=== PATIENT | male | born 1945 | race Caucasian/White ===

== ENCOUNTER → 2016-10-23 | Outpatient (CLI) | payer MEDICARE, OTHER | END | disposition home or self-care (01) | LOC: CFH 08:23 | PROVIDERS: ATTEND Surgery | DX: I71.4 Abdominal aortic aneurysm, without rupture (principal) | CPT/HCPCS: 93978 ==

== ENCOUNTER → 2016-11-05 | Outpatient (CLI) | payer MEDICARE, OTHER ==
[~2016-11-05] MED LIST: OMNIPAQUE 350 MG/ML, 100ML BOTTLE ONE
== END | disposition home or self-care (01) ==
LOC: CFH 11:01
PROVIDERS: ATTEND Surgery
DX: I71.4 Abdominal aortic aneurysm, without rupture (principal); I70.1 Atherosclerosis of renal artery; M51.37 Other intervertebral disc degeneration, lumbosacral region; M47.896 Other spondylosis, lumbar region
CPT/HCPCS: 74177; 82565; Q9967

== ENCOUNTER 2016-11-24 07:37 | Inpatient (IN) | payer MEDICARE, OTHER ==
[2016-11-21 09:07] LABS: HEMATOCRIT 47.1 % (39.2-51.8); HEMOGLOBIN 15.8 g/dL (13.7-18.0); WHITE BLOOD COUNT 4.8 x10^3/uL (3.4-10)
[2016-11-21 09:18] LABS: ASPARTATE AMINO TRANSFERASE 16 U/L (15-37); BLOOD UREA NITROGEN 19 mg/dL (7-18)
[~2016-11-24] VITALS: Ht 170.2 cm; Wt 70.6 kg
[~2016-11-24 07:37] MED LIST changes: +ASCO10004 PO; +ASPI-496 PO; +BENA40TA2 PO; +CHOL200074 PO; +CYAN50003 PO; +EZET10TA18 PO; +FLAX1000 PO; +GLUC1500 PO; +HYDR25TA6 PO; +LEVO50TA5 PO; -OMNIPAQUE 350 MG/ML, 100ML BOTTLE ONE; +POTA10TA12 PO; +RED600TA PO
[2016-11-24] MEDS ORDERED: LACTATED RINGERS 1,000 ML IV SCH (12:21)
[2016-11-24 12:46] VITALS: BP 126/79
[2016-11-24] MEDS ORDERED: FENTANYL PF 250 MCG/5ML ONE (13:45)
[2016-11-24] MEDS ORDERED: CEFAZOLIN 1,000 MG ONE (14:09)
[2016-11-24] MEDS ORDERED: PROPOFOL 10 MG/ML, 20ML ONE (14:09)
[2016-11-24] MEDS ORDERED: PROTAMINE SULFATE 10 MG/ML, 5ML ONE (14:09)
[2016-11-24] MEDS ORDERED: GLYCOPYRROLATE 0.4 MG/2 ML, 2ML ONE (14:09)
[2016-11-24] MEDS ORDERED: NEOSTIGMINE 1 MG/ML, 10ML ONE (14:09)
[2016-11-24] MEDS ORDERED: DEXAMETHASONE 4 MG/ML, 1ML ONE (14:09)
[2016-11-24] MEDS ORDERED: EPHEDRINE 50 MG/ML, 1ML ONE (14:09)
[2016-11-24] MEDS ORDERED: ONDANSETRON 2MG/ML, 2ML ONE (14:09)
[2016-11-24] MEDS ORDERED: ROCURONIUM 10MG/ML,5ML ONE (14:09)
[2016-11-24] MEDS ORDERED: FENTANYL PF 100 MCG/2ML IV PRN (14:30)
[2016-11-24] MEDS ORDERED: hydrALAzine 20 MG/ML, 1ML IV PRN (14:30)
[2016-11-24] MEDS ORDERED: ONDANSETRON 2MG/ML, 2ML IVPush PRN (14:30)
[2016-11-24] MEDS ORDERED: ACETAMINOPHEN 325 MG TABLET PO PRN ×2 (14:30→19:00)
[2016-11-24] MEDS ORDERED: METOPROLOL 1 MG/ML, 5ML IV PRN (14:30)
[2016-11-24] MEDS ORDERED: LABETALOL 5MG/ML, 20ML IV PRN (14:30)
[2016-11-24] MEDS ORDERED: PROMETHAZINE 25 MG/ML, 1ML IV PRN (14:30)
[2016-11-24] MEDS ORDERED: EPHEDRINE 50 MG/ML, 1ML IVPush PRN (14:30)
[2016-11-24] MEDS ORDERED: OXYcodone 5 MG/5 ML ORAL.SOL UDC PO PRN (14:30)
[2016-11-24] MEDS ORDERED: ALBUTEROL SULFATE 2.5 MG/3 ML NPPB PRN (14:30)
[2016-11-24] MEDS ORDERED: HYDROmorphone 1 MG/ML, 1ML IV PRN (14:30)
[2016-11-24] MEDS ORDERED: BUPIVACAINE/PF-EPI 0.25% 1:200K IM ONE (14:45)
[2016-11-24] MEDS ORDERED: THROMBIN 5,000 UNIT VIAL TP ONE ×2 (14:45→14:48)
[2016-11-24] MEDS ORDERED: HEPARIN 1,000 UNITS/ML, 10ML IV ONE (14:45)
[2016-11-24] MEDS ORDERED: BUPIVACAINE/PF-EPI 0.25% 1:200K ONE (14:45)
[2016-11-24] MEDS ORDERED: HEPARIN 5,000 UNITS/ML, 1ML ONE (14:47)
[2016-11-24] MEDS ORDERED: PROTAMINE SULFATE 10 MG/ML, 25ML ONE (14:48)
[2016-11-24] MEDS ORDERED: HEPARIN 1,000 UNITS/ML, 10ML ONE ×2 (14:51→15:06)
[2016-11-24] MEDS ORDERED: OXYcodone 5 MG/5 ML ORAL.SOL UDC ONE (17:08)
[2016-11-24] MEDS ORDERED: ENOXAPARIN 40 MG/0.4 ML SQ SCH (18:00)
[2016-11-24] MEDS ORDERED: ONDANSETRON 2MG/ML, 2ML IV PRN (19:00)
[2016-11-24] MEDS ORDERED: HYDROcodone/APAP 5/325 TABLET PO PRN (19:00)
[2016-11-24] MEDS ORDERED: morphine SULFATE 10 MG/ML, 1ML IV PRN (19:00)
[2016-11-24] MEDS: POTASSIUM CHLORIDE 20 MEQ in D5%-0.45% NACL 1,000 ML IV SCH (19:25)
[2016-11-24 19:43] VITALS: BP 91/52
[2016-11-25 00:35] VITALS: BP 92/41
[2016-11-25 03:59] VITALS: BP 95/42
[2016-11-25] MEDS ORDERED: LEVOTHYROXINE 50 MCG TABLET PO SCH (06:00)
[2016-11-25] MEDS: POTASSIUM CHLORIDE 20 MEQ in D5%-0.45% NACL 1,000 ML IV SCH (06:01)
[2016-11-25 07:19] VITALS: BP 89/44
[2016-11-25 07:56] VITALS: BP 109/49
[2016-11-25] MEDS ORDERED: ASCORBIC ACID 500 MG TABLET PO SCH (09:00)
[2016-11-25] MEDS ORDERED: BENAZEPRIL 20 MG TABLET PO SCH (09:00)
[2016-11-25] MEDS ORDERED: ASPIRIN 81 MG TABLET CHEW PO SCH (09:00)
[2016-11-25] MEDS ORDERED: HYDR-3240 PO (13:26)
[2016-11-25] MEDS ORDERED: ONDA4TAB7 PO (13:26)
[2016-11-25] MEDS ORDERED: DOCU-131 PO (13:26)
[2016-11-25 13:36] VITALS: BP 110/62
[2016-11-26] MEDS ORDERED: HYDROCHLOROTHIAZIDE 12.5 MG CAPSULE PO SCH (09:00)
[2016-11-26] MEDS ORDERED: EZETIMIBE 10 MG TABLET PO SCH (09:00)
== END 2016-11-25 13:52 | disposition home or self-care (01) | DRG 269 ==
LOC: ORIP 11:38 → 4NOR 18:27
PROVIDERS: ADMIT Surgery; ATTEND Surgery
PROC: B41D1ZZ Fluoroscopy of Aorta and Bilateral Lower Extremity Arteries using Low Osmolar Contrast (ICD-10-PCS; 2016-11-24)
PROC: 04V03D6 (ICD-10-PCS; principal; 2016-11-24 13:30)
DX: I71.4 Abdominal aortic aneurysm, without rupture (principal); E03.9 Hypothyroidism, unspecified; I10 Essential (primary) hypertension
CPT/HCPCS: 34802; 34812; 34825; 36200; 36415; 75952; 75953; 80053; 85025; 86850; 86900; 86923; 93005; C1725; J0690; J1100; J1644; J1650; J2405; J2704; J2710; J2720; J3010; J3480; C1751; C1768; C1769; C1894; J7120

== ENCOUNTER → 2017-06-02 | Outpatient (CLI) | payer MEDICARE, OTHER ==
[~2017-06-02] MED LIST changes: +DOCU-131 PO; -GLUC1500 PO; +GLUC15006 PO; +HYDR-3240 PO; +ONDA4TAB7 PO
== END | disposition home or self-care (01) ==
LOC: CVU 08:30
PROVIDERS: ATTEND Surgery
DX: I71.4 Abdominal aortic aneurysm, without rupture (principal)
CPT/HCPCS: 93978

== ENCOUNTER → 2018-06-14 | Outpatient (CLI) | payer MEDICARE, OTHER ==
[~2018-06-14] MED LIST changes: -BENA40TA2 PO; +BENA40TA3 PO; -FLAX1000 PO; +FLAX10004 PO
== END | disposition home or self-care (01) ==
LOC: CFH 07:10
PROVIDERS: ATTEND Internal Medicine Gastroenterology
DX: D69.6 Thrombocytopenia, unspecified (principal); T36.95XA Adverse effect of unspecified systemic antibiotic, initial encounter
CPT/HCPCS: 76700

== ENCOUNTER → 2018-06-23 | Outpatient (CLI) | payer MEDICARE, OTHER | END | disposition home or self-care (01) | LOC: CVU 08:38 | PROVIDERS: ATTEND Internal Medicine | DX: I72.8 Aneurysm of other specified arteries (principal); I10 Essential (primary) hypertension; E78.5 Hyperlipidemia, unspecified; Z87.891 Personal history of nicotine dependence | CPT/HCPCS: 93978 ==

== ENCOUNTER 2018-12-14 10:59 | Observation (INO) | payer MEDICARE, OTHER ==
[~2018-12-14] VITALS: Ht 170.2 cm; Wt 69.5 kg
[~2018-12-14 10:59] MED LIST changes: -EZET10TA18 PO; +EZET10TA70 PO
[2018-12-14] MEDS: SODIUM CHLORIDE 0.9% 1,000 ML IV SCH ×2 (12:26→20:26)
[2018-12-14 12:28] VITALS: BP 185/85
[2018-12-14] MEDS ORDERED: CEFAZOLIN PMX 1GM/50ML 50 ML IVPB ONE (12:30)
[2018-12-14] MEDS ORDERED: CYAN1TAB29 PO (12:37)
[2018-12-14] MEDS ORDERED: LACT1CAP35 PO (12:39)
[2018-12-14] MEDS ORDERED: CEFAZOLIN PMX 1GM/50ML 50 ML ONE (12:40)
[2018-12-14] MEDS ORDERED: CEFAZOLIN 1,000 MG ONE (12:40)
[2018-12-14] MEDS ORDERED: FENTANYL PF 100 MCG/2ML ONE (12:40)
[2018-12-14] MEDS ORDERED: MIDAZOLAM 1 MG/ML, 5ML ONE (12:40)
[2018-12-14] MEDS ORDERED: LIDOCAINE 2%, 20ML ONE (12:40)
[2018-12-14] MEDS ORDERED: PSYL174P2 PO (12:59)
[2018-12-14 13:07] LABS: BASOPHILS # (AUTO) 0.02 x10^3/uL (0-0.1); BASOPHILS % (AUTO) 1 % (0-1); EOSINOPHILS # (AUTO) 0.22 x10^3/uL (0-0.4); EOSINOPHILS % (AUTO) 6 % (1-7); LYMPHOCYTES # (AUTO) 1.03 x10^3/uL (1-3.4); LYMPHOCYTES % (AUTO) 27 % (22-44); MD NO; MEAN CORPUSCULAR HEMOGLOBIN 32.7 pg (27.5-34.5); MEAN CORPUSCULAR VOLUME 99.2 fL (81-97); MEAN PLATELET VOLUME 8.7 fL (7.4-10.4); MONOCYTES # (AUTO) 0.39 x10^3/uL (0.2-0.8); MONOCYTES % (AUTO) 10 % (2-9); NEUTROPHILS # (AUTO) 2.13 x10^3/uL (1.8-6.8); NEUTROPHILS % (AUTO) 56 % (42-75); PLATELET COUNT 129 x10^3/uL (130-400); RED BLOOD COUNT 4.46 x10^6/uL (4.38-5.82); RED CELL DISTRIBUTION WIDTH 13.5 % (9.4-14.8)
[2018-12-14 13:19] LABS: ALANINE AMINOTRANSFERASE 24 U/L (12-78); ALBUMIN 3.7 g/dL (3.4-5.0); CALCIUM 8.3 mg/dL (8.5-10.1); CREATININE 0.86 mg/dL (0.7-1.3)
[2018-12-14 13:21] LABS: ALKALINE PHOSPHATASE 73 U/L (45-117); BILIRUBIN,TOTAL 0.3 mg/dL (0.2-1.0); TOTAL PROTEIN 6.7 g/dL (6.4-8.2)
[2018-12-14 13:30] LABS: ANION GAP 3 mmol/L (5-15); CHLORIDE 110 mmol/L (98-107)
[2018-12-14] MEDS ORDERED: ONDANSETRON 2MG/ML, 2ML IV PRN (15:00)
[2018-12-14] MEDS ORDERED: ACETAMINOPHEN 325 MG TABLET PO PRN (15:00)
[2018-12-14] MEDS ORDERED: HOLD MEDICATION MC PRN (15:00)
[2018-12-14] MEDS ORDERED: HYDROcodone/APAP 5/325 TABLET PO PRN (15:00)
[2018-12-14] MEDS ORDERED: ZOLPIDEM 5MG TABLET PO PRN (15:00)
[2018-12-14 15:55] VITALS: BP 155/71
[2018-12-14 19:46] VITALS: BP 116/73
[2018-12-14] MEDS: BENAZEPRIL 10 MG TABLET PO SCH (21:08)
[2018-12-14] MEDS: CEFAZOLIN PMX 1GM/50ML 50 ML IVPB SCH (21:10)
[2018-12-14] MEDS: SODIUM CHLORIDE FLUSH 10ML SYR IVF SCH (21:10)
[2018-12-15 00:45] VITALS: BP 119/68
[2018-12-15] MEDS: CEFAZOLIN PMX 1GM/50ML 50 ML IVPB SCH (05:11)
[2018-12-15] MEDS ORDERED: LEVOTHYROXINE 50 MCG TABLET PO SCH (06:00)
[2018-12-15 07:50] VITALS: BP 129/69
[2018-12-15] MEDS: BENAZEPRIL 10 MG TABLET PO SCH (08:18)
[2018-12-15] MEDS: SODIUM CHLORIDE FLUSH 10ML SYR IVF SCH (08:20)
[2018-12-15] MEDS ORDERED: LACTOBACILLUS CHEW TABLET PO SCH (09:00)
[2018-12-15] MEDS ORDERED: CYANOCOBALAMIN 1,000 MCG TABLET PO SCH (09:00)
[2018-12-15] MEDS ORDERED: TEMPLATE NON-FORMULARY MED. (Glucosamine Hcl** 500 MG) PO SCH (09:00)
[2018-12-15] MEDS ORDERED: TEMPLATE NON-FORMULARY MED. (Red Yeast Rice** 600 MG) PO SCH (09:00)
[2018-12-15] MEDS ORDERED: TEMPLATE NON-FORMULARY MED. (Cyanocobalamin/Folic Acid** (Vitamin B12-Folic Acid Tablet**) PO SCH (09:00)
[2018-12-15] MEDS ORDERED: ASCORBIC ACID 500 MG TABLET PO SCH (09:00)
[2018-12-15] MEDS ORDERED: TEMPLATE NON-FORMULARY MED. (Flaxseed Oil 1,000 MG) PO SCH (09:00)
[2018-12-15] MEDS ORDERED: CHOLECALCIFEROL 1,000 UNIT TABLET PO SCH (09:00)
[2018-12-15] MEDS ORDERED: PSYLLIUM PACKET PO SCH (09:00)
[2018-12-15] MEDS ORDERED: ACET325T26 PO (09:34)
== END 2018-12-15 11:18 | disposition home or self-care (01) ==
LOC: CACL 10:59 → ORIP 14:38 → 5SO 15:41 → DCLOUNGE 12-15 11:06
PROVIDERS: ADMIT Internal Medicine Cardiovascular Disease; ATTEND Internal Medicine Cardiovascular Disease
DX: I49.5 Sick sinus syndrome (principal); R00.1 Bradycardia, unspecified; I10 Essential (primary) hypertension; E78.2 Mixed hyperlipidemia; Z79.82 Long term (current) use of aspirin
CPT/HCPCS: 33208; 36415; 71045; 71046; 80053; 85025; 96365; 96366; 99156; C1779; C1785; C1892; G0378; J0690; J2250; J3010; J3490

== ENCOUNTER → 2020-02-13 | Outpatient (CLI) | payer MEDICARE, OTHER ==
[~2020-02-13] MED LIST changes: +ACET325T26 PO; +ASCO100018 PO; -ASCO10004 PO; +CYAN1TAB29 PO; +LACT1CAP35 PO; +PSYL174P2 PO
== END | disposition home or self-care (01) ==
LOC: CFH 13:19
DX: Z12.2 Encounter for screening for malignant neoplasm of respiratory organs (principal); R91.1 Solitary pulmonary nodule; Z87.891 Personal history of nicotine dependence
CPT/HCPCS: G0297

== ENCOUNTER 2020-05-14 08:48 | Outpatient (CLI) | payer MEDICARE, OTHER ==
[~2020-05-14 08:48] MED LIST changes: +HYDR-2214 PO; -HYDR-3240 PO; +POTA-138 PO; -POTA10TA12 PO
== END 2020-05-14 23:59 | disposition home or self-care (01) ==
LOC: CFH 08:48
PROVIDERS: ATTEND Internal Medicine Cardiovascular Disease
DX: I71.4 Abdominal aortic aneurysm, without rupture (principal); I51.7 Cardiomegaly; Z95.0 Presence of cardiac pacemaker
CPT/HCPCS: 93306; 93978

== ENCOUNTER → 2020-06-19 | Outpatient (CLI) | payer MEDICARE, OTHER ==
[~2020-06-19] MED LIST changes: -POTA-138 PO; +POTA10TA12 PO
== END | disposition home or self-care (01) ==
LOC: CVU 07:38
PROVIDERS: ATTEND Internal Medicine Cardiovascular Disease
DX: I70.208 Unspecified atherosclerosis of native arteries of extremities, other extremity (principal); I10 Essential (primary) hypertension; R60.0 Localized edema; R21 Rash and other nonspecific skin eruption; Z86.79 Personal history of other diseases of the circulatory system
CPT/HCPCS: 93922; 93925; 93978